=== PATIENT | female | born 1965 | race Caucasian/White ===

== ENCOUNTER 2021-12-30 17:53 | Emergency (ER) | payer BC ==
[~2021-12-30] VITALS: Ht 165.1 cm; Wt 107.5 kg
[2021-12-30 18:00] VITALS: BP_SYST 148
--- NOTE | 2021-12-30 18:13 | NUR ---
Patient to ER bed 3 to gown for evaluation. Side rails up. Report given to KELVIN ACUNA.
--- NOTE | 2021-12-30 18:17 | NUR ---
PT CAME IN FROM [place], DRIVEN BY [employer], REPORTS TRIP AND FALL IN PARKING LOT PRIOR TO ARRIVAL, PAIN TO LEFT CALF AND R ELBOW. PT IS UNABLE TO AMBULATE DUE TO PAIN, [id number]
[2021-12-30] MEDS ORDERED: HYDROcodone/ACETAMIN 5-325 MG TAB (NORCO/ VICODIN) PO ONE (18:30)
[2021-12-30] MEDS ORDERED: KETOROLAC TROMETHAMINE 60 MG/2 ML VIAL IM ONE (18:30)
--- NOTE | 2021-12-30 18:48 | NUR ---
BIBS WITH C/C OF S/P MECHANICAL FALL. PT REPORTS FALLING ON HER RIGHT SIDE AND HITTING HER SHOULDER AREA. REPORTS SLIGHT PAIN TO RIGHT ELBOW AREA. PT C/O 10/10 PAIN FROM LEFT CALF. SEEN AND ASSESSED PT. US OF LLE ORDERED. PENDING TEST. PT RESTING QUIETLY IN [facility]. ALL NEEDS ATTENDED TO. WILL CONT TO MONITOR.
[2021-12-30] MEDS ORDERED: HYDR-3917 PO (19:43)
[2021-12-30] MEDS ORDERED: IBUP-1969 PO (19:43)
--- NOTE | 2021-12-30 20:03 | NUR ---
Patient given written and verbal discharge instructions and verbalizes understanding. ER MD discussed with patient the results and treatment provided. Patient in stable condition. ID arm band removed. Rx of motrin and norco sent to pharmacy. Patient educated on pain management and to follow up with PMD. Pain Scale 2. Opportunity for questions provided and answered. Medication side effect fact sheet provided.
[2021-12-30 20:04] VITALS: BP_SYST 137
== END 2021-12-30 20:03 | disposition home or self-care (01) ==
LOC: SED 17:53
DX: S86.812A Strain of other muscle(s) and tendon(s) at lower leg level, left leg, initial encounter (principal); R03.0 Elevated blood-pressure reading, without diagnosis of hypertension; Z79.899 Other long term (current) drug therapy; X03.0XXA Exposure to flames in controlled fire, not in building or structure, initial encounter; Y93.89 Activity, other specified; Y92.89 Other specified places as the place of occurrence of the external cause; Y99.8 Other external cause status
CPT/HCPCS: 99284; 93971; 73590; 96372; J1885